=== PATIENT | male | born 1985 | race Caucasian/White ===

== ENCOUNTER 2017-08-15 14:25 | Emergency (ER) | payer SELFPAY ==
[2017-08-15 14:39] VITALS: BP 134/65
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
--- NOTE | 2017-08-15 16:02 | RAD ---
Indication: Fifth metacarpal injury. 5 views of the right hand demonstrates impacted fracture at the base of the fifth metacarpal. Impaction is noted. IMPRESSION: Fracture base of the fifth metacarpal.
== END 2017-08-15 15:45 | disposition home or self-care (01) ==
LOC: UCCORT 14:25
DX: S62.316A Displaced fracture of base of fifth metacarpal bone, right hand, initial encounter for closed fracture (principal); W22.09XA Striking against other stationary object, initial encounter; Y93.89 Activity, other specified; Y92.9 Unspecified place or not applicable
CPT/HCPCS: 99212; G0463

== ENCOUNTER 2017-08-26 12:16 | Day surgery (SDC) | payer SELFPAY ==
[~2017-08-26 12:16] MED LIST: Buffered Lidocaine 0.9% SYRIN* 5 ML/SYR SYRINGE INTRADERM ONE; Dexamethasone IV* 4 MG/ML 1 ML (4 MG) IV SLOW PU ONE; Famotidine IV* 10 MG/ML 2 ML (20 mg) IV ONE; Levalbuterol 0.63MG/3ML NEB* UNIT OF USE INH ONE; Sodium Citrate/Citric Acid* 15 ML UDC PO ONE
[2017-08-26] MEDS ORDERED: Dexamethasone IV* 4 MG/ML 1 ML (4 MG) ONE (12:25)
[2017-08-26] MEDS ORDERED: Famotidine IV* 10 MG/ML 2 ML (20 mg) ONE (12:25)
[2017-08-26] MEDS ORDERED: Levalbuterol 0.63MG/3ML NEB* UNIT OF USE INH ONE (12:25)
[2017-08-26] MEDS ORDERED: ceFAZolin 2 GM PREMIX (*) 2 GM/50 ML BAG IVPB ONE (12:34)
[2017-08-26] MEDS ORDERED: fentaNYL* 50 MCG/ML 5 ML VIAL (250 MCG VIAL) ONE (14:38)
[2017-08-26] MEDS ORDERED: Midazolam* 1 MG/ML 5 ML VIAL (5 MG) ONE (14:39)
[2017-08-26] MEDS ORDERED: Lidocaine 2% PF * 5 ML VIAL ONE (14:41)
[2017-08-26] MEDS ORDERED: Propofol* 10 MG/ML 20 ML BTL IV PUSH ONE (14:41)
[2017-08-26] MEDS ORDERED: Ketorolac INJ* 30 MG/ML 1 ML VIAL ONE (14:41)
[2017-08-26] MEDS ORDERED: Ondansetron INJ* 2 MG/ML VIAL ONE (14:41)
[2017-08-26] MEDS ORDERED: Bupivacaine 0.5%* 50 ML VIAL ONE (14:45)
[2017-08-26] MEDS ORDERED: fentaNYL* 50 MCG/ML 2 ML VIAL (100 MCG VIAL) IV PRN (14:48)
[2017-08-26] MEDS ORDERED: Acetaminophen TAB* 325 MG PO PRN (14:48)
[2017-08-26] MEDS ORDERED: Ondansetron INJ* 2 MG/ML VIAL IV PRN (14:48)
[2017-08-26] MEDS ORDERED: Naloxone* 0.4 MG/ML 1 ML VIAL IV PRN (14:48)
[2017-08-26] MEDS ORDERED: oxyCODONE/Acetamin 5/325 MG* TAB PO PRN (14:50)
[2017-08-26 16:15] VITALS: BP 146/89
--- NOTE | 2017-08-27 03:41 | OP ---
DATE OF OPERATION: 08/26/17 - [facility] DATE OF : 81 SURGEON: Anderson Silva MD EVENT COORDINATOR: CRIS Wilson ANESTHESIOLOGIST: Dr. Valerio. ANESTHESIA: General. PRE-OP DIAGNOSIS: Right displaced intraarticular fifth metacarpal base fracture. POST-OP DIAGNOSIS: Right displaced intraarticular fifth metacarpal base fracture. OPERATIVE PROCEDURE: Closed reduction and percutaneous fixation of right displaced fifth metacarpal base fracture. INDICATIONS: Rosalio is 31. He has a displaced intraarticular metacarpal base fracture. The dorsal portion of the articular surface is sitting displaced dorsally and in a position where it would impinge. Due to the concern for posttraumatic arthrosis, I talked to him about risks and benefits including a risk of pin-tract infection. He wanted to proceed with surgery. ESTIMATED BLOOD LOSS: 1 mL. COMPLICATIONS: None. FINDINGS: See above and below. DESCRIPTION OF PROCEDURE: Rosalio was seen in the preoperative holding area. The correct side and site of procedure were identified. We came back to the operating room where the arm was prepped and draped in the usual fashion. A time-out was performed. The arm was exsanguinated with the Esmarch and the tourniquet inflated to 250 mmHg. I then mobilized the fracture. I then reduced the fracture. There was a small piece of the base where the ECU tendon was attached, they could not reduce , but the remainder of the fracture reduced nicely. I then placed one 0.062 K- wire across the fracture site holding the reduction. This was placed from distal ulnar down proximal radial down into the capitate bone. I then took another 0.062 K-wire and placed this into that piece of the metacarpal base where ECU tendon was attached. I then was able to translate the wire distally and that reduced the fragment. I held this in place while I advanced the K- wire into the base of the fourth metacarpal. Once I had this wire in place, the fracture was very nicely aligned. The fixation was very stable. The wires were then bent and clipped. The pins were dressed with Xeroform, 4x4s. They were well-padded and an ulnar gutter splint was then applied in the intrinsic left position. Tourniquet was then deflated. Hand pinked up immediately. He was woken up and taken to the recovery room in stable condition. [id number]/[facility] #: [id number] ERIN
--- NOTE | 2017-08-27 15:29 | RAD ---
INDICATION: Right hand fifth metacarpal base] versus open reduction and internal fixation, S62.316A COMPARISONS: August 23, 2017 TECHNIQUE: Fluoroscopy was provided for a surgical procedure. Total fluoroscopy time is: 56 seconds FINDINGS: Spot images demonstrate percutaneous fixation of the base of the fifth metacarpal. IMPRESSION: FLUOROSCOPY WAS PROVIDED FOR A SURGICAL PROCEDURE CPT II Codes: G9500
== END 2017-08-26 16:21 | disposition home or self-care (01) ==
LOC: OREAST 12:16
PROVIDERS: ATTEND Orthopaedic Surgery Hand Surgery
DX: S62.316A Displaced fracture of base of fifth metacarpal bone, right hand, initial encounter for closed fracture (principal); W22.8XXA Striking against or struck by other objects, initial encounter; Y92.89 Other specified places as the place of occurrence of the external cause; Z72.0 Tobacco use
CPT/HCPCS: 76000; J0690; J1100; J1885; J2250; J2405; J2704; J3010